=== PATIENT | male | born 2000 | race African-American/Black ===

== ENCOUNTER 2021-08-20 20:35 | Emergency (ER) | payer OTHER ==
[~2021-08-20] VITALS: Ht 188 cm; Wt 145.2 kg
[2021-08-20 21:59] VITALS: BP 149/87
[2021-08-20] MEDS ORDERED: CEPHALEXIN500 MG PO (23:01)
== END 2021-08-20 22:03 | disposition home or self-care (01) ==
LOC: ER 20:35
DX: S61.217A Laceration without foreign body of left little finger without damage to nail, initial encounter (principal); F17.210 Nicotine dependence, cigarettes, uncomplicated; F12.90 Cannabis use, unspecified, uncomplicated; W26.8XXA Contact with other sharp object(s), not elsewhere classified, initial encounter; Y93.89 Activity, other specified; Y92.89 Other specified places as the place of occurrence of the external cause; Y99.8 Other external cause status

== ENCOUNTER 2021-08-20 22:40 | Emergency (ER) | payer OTHER ==
[~2021-08-20] VITALS: Ht 188 cm; Wt 145.2 kg
[2021-08-20] MEDS ORDERED: CEPHALEXIN500 MG PO (23:01)
[2021-08-20 23:20] VITALS: BP 156/97
== END 2021-08-20 23:20 | disposition home or self-care (01) ==
LOC: ER 22:40
DX: S61.217A Laceration without foreign body of left little finger without damage to nail, initial encounter (principal); X58.XXXA Exposure to other specified factors, initial encounter; Y93.89 Activity, other specified; Y92.89 Other specified places as the place of occurrence of the external cause; Y99.8 Other external cause status